=== PATIENT | female | born 1970 ===

== ENCOUNTER 2024-06-17 08:06 | Day surgery (SDC) | payer MEDICAID ==
[~2024-06-17] VITALS: Ht 154.9 cm; Wt 56.7 kg
[2024-06-17] MEDS ORDERED: MIDAZOLAM HCL 5 MG/5 ML VIAL ONE (08:15)
[2024-06-17] MEDS ORDERED: BENZOCAINE 20% 0.5mL UD SPRAY MM ONE (08:15)
[2024-06-17] MEDS ORDERED: MEPERIDINE 100 MG INJ. 100 MG/ML VIAL ONE ×2 (08:15)
[2024-06-17 10:00] VITALS: O2SAT 100
[2024-06-17 13:58] VITALS: BP_SYST 124; PULSE 95; RESP 14
== END 2024-06-17 11:35 | disposition home or self-care (01) ==
LOC: SGI 08:06 → SMU 08:08 → SGI 11:35
PROVIDERS: ATTEND Student in an Organized Health Care Education/Training Program
DX: K62.5 Hemorrhage of anus and rectum (principal); K21.9 Gastro-esophageal reflux disease without esophagitis; K29.50 Unspecified chronic gastritis without bleeding; R12 Heartburn; E78.5 Hyperlipidemia, unspecified; K64.8 Other hemorrhoids; K64.4 Residual hemorrhoidal skin tags; Z98.891 History of uterine scar from previous surgery
CPT/HCPCS: 43239; 45378; 88305; 88312; 88313; J2175; J2250